=== PATIENT | female | born 1975 | race Caucasian/White ===

== ENCOUNTER 2021-11-08 12:23 | Outpatient (CLI) | payer BC, SELFPAY ==
--- NOTE | 2021-11-08 12:59 | MM_ITS ---
WS: [id number] BILATERAL 3D TOMOSYNTHESIS DIGITAL SCREENING MAMMOGRAPHY WITH CAD CLINICAL INFORMATION: SCREENING HISTORY: Screening mammogram. No current complaints. COMPARISON: 017 TECHNIQUE: Bilateral CC and MLO views. FINDINGS: Scattered fibroglandular densities bilaterally. New asymmetric density upper outer LEFT breast latera lly measuring 10 mm. This is best seen on the cc view. Recommend further evaluation with LEFT diagnos tic mammography and ultrasound. RIGHT breast is unremarkable and unchanged. MM/[place] [id number] IMPRESSION: BI-RADS: 0-Incomplete: Need additional imaging evaluation FOLLOW UP: Need Additional Imaging Recommend LEFT breast diagnostic mammography and ultrasound
== END 2021-11-08 12:24 | disposition home or self-care (01) ==
LOC: RAD 12:24
PROVIDERS: Visit Provider Registered Nurse
DX: Z12.31 Encounter for screening mammogram for malignant neoplasm of breast (principal)
CPT/HCPCS: 77063; 77067

== ENCOUNTER 2021-12-19 12:41 | Outpatient (CLI) | payer BC, SELFPAY ==
--- NOTE | 2021-12-19 13:02 | MM_ITS ---
WS: [id number] LEFT 3D TOMOSYNTHESIS DIGITAL MAMMOGRAPHY WITH CAD CLINICAL INFORMATION: ABNORMAL MAMMOGRAM COMPARISON: November 08, 2021 TECHNIQUE: 3 views of the left breast were obtained. FINDINGS: Scattered fibroglandular densities of the left breast. Previously described 9 mm lesion upper outer q uadrant partially compresses out on the spot compression views. Ultrasound described below. ULTRASOUND BREAST LEFT TECHNIQUE: Ultrasound left breast focused area of concern. CLINICAL INFORMATION: ABNORMAL MAMMOGRAM COMPARISON: None. FINDINGS: Ultrasound LEFT breast at the 12 to 3:00 position. No suspicious cystic or solid lesions. Dense paren chymal tissue. Incidental intramammary lymph node with a fatty hilum at the 3:00 position measuring 4 x 3 mm. MM/[place] [id number] IMPRESSION: BI-RADS: 2-Benign FOLLOW UP: 1 Year Follow-up Recommend return to annual screening mammography.
== END 2021-12-19 12:42 | disposition home or self-care (01) ==
LOC: RAD 12:43
PROVIDERS: PCP Family Medicine; Visit Provider Family Medicine
DX: R92.8 Other abnormal and inconclusive findings on diagnostic imaging of breast (principal)
CPT/HCPCS: 76642; 77061